=== PATIENT | male | born 1935 | race Caucasian/White ===

== ENCOUNTER 2020-01-22 10:45 | Outpatient (REF) | payer MEDICARE, SELFPAY ==
[2020-01-22 14:36] LABS: PSA,Total (Free>4and<10) 0.27 ng/mL (0.00-4.00)
== END 2020-01-22 10:46 | disposition home or self-care (01) ==
LOC: HO.10HDL 10:45
PROVIDERS: Visit Provider Urology
DX: N40.1 Benign prostatic hyperplasia with lower urinary tract symptoms (principal); Z12.5 Encounter for screening for malignant neoplasm of prostate
CPT/HCPCS: 84153